=== PATIENT | female | born 1990 | race African-American/Black ===

== ENCOUNTER 2021-02-01 09:58 | Emergency (ER) | payer OTHER ==
[2021-02-01 10:01] VITALS: BP 125/74; PULSE 107; BMI 28.3
[2021-02-01] MEDS ORDERED: KETOROLAC TROMETHAMINE 30 MG/1 ML VIAL IM ONE (10:29)
[2021-02-01] MEDS ORDERED: KETOROLAC TROMETHAMINE 30 MG/1 ML VIAL ONE (10:37)
== END 2021-02-01 10:49 | disposition home or self-care (01) ==
LOC: JERFT 09:58
PROC: 3E0233Z Introduction of Anti-inflammatory into Muscle, Percutaneous Approach (ICD-10-PCS; principal; 2021-02-01)
DX: L05.91 Pilonidal cyst without abscess (principal)
CPT/HCPCS: 99284-25